=== PATIENT | female | born 1980 | race Caucasian/White ===

== ENCOUNTER → 2017-09-13 | Outpatient (CLI) | payer BC ==
[~2017-09-13] MED LIST: ACET300T3 PO; MTR600X PO; PRENTAB26 PO
== END | disposition home or self-care (01) ==
LOC: C.LABBC 09:54
PROVIDERS: ATTEND Physician Assistant
DX: Z01.419 Encounter for gynecological examination (general) (routine) without abnormal findings (principal)

== ENCOUNTER → 2017-09-13 | Outpatient (CLI) | payer BC ==
[~2017-09-13] MED LIST changes: +ACET-749 PO; -ACET300T3 PO
== END | disposition home or self-care (01) ==
LOC: C.PAPS 13:29
PROVIDERS: ATTEND Physician Assistant
DX: Z01.419 Encounter for gynecological examination (general) (routine) without abnormal findings (principal)

== ENCOUNTER 2019-01-16 08:11 | Inpatient (IN) ==
[2019-01-16] MEDS ORDERED: OXYTOCIN 30 UNITS/500 ML BAG IV PRN ×3 (08:22→16:52)
[2019-01-16] MEDS ORDERED: LACTATED RINGER'S 1,000 ML IV PRN (08:22)
[2019-01-16 09:11] LABS: Hematocrit (blood only) 34.1 % (37-47); Hemoglobin 11.5 g/dL (12.0-16.0); Mean Corpuscular Volume 81.6 fL (80-100); Mean Platelet Volume 10.5 fL (7.4-10.4); Platelet Count 172 K/uL (130-400); RDW Coefficient of Variation 13.1 % (11.5-14.5); Red Blood Count 4.18 M/uL (4.2-5.4); White Blood Count 9.06 K/uL (4.8-10.8)
[2019-01-16 09:12] LABS: Mean Corpuscular Hgb Conc 33.7 g/dL (32-36)
[2019-01-16 09:28] LABS: INR 0.9 (0.9-1.1); Partial Thromboplastin Ratio 0.9; Partial Thromboplastin Time 23.2 Seconds (21.0-31.0); Prothrombin Time 9.3 Seconds (9.0-12.0)
[2019-01-16 09:33] LABS: Albumin Level 2.7 gm/dl (3.4-5.0); Calcium 8.8 mg/dl (8.5-10.1); Creatinine Clr Calc Pharmacy 130.5 ml/min; Est GFR (African American) 133.5; Est GFR (Non-African American) 115.2; Potassium 3.3 mmol/L (3.5-5.1)
[2019-01-16 09:36] LABS: Albumin Globulin Ratio 0.7 (0.9-2); Bilirubin,Total 0.4 mg/dl (0.2-1); Globulin 3.9 gm/dl (2.5-4.0); Total Protein 6.6 gm/dl (6.4-8.2)
[2019-01-16 09:48] LABS: Estimated Average Glucose 103 mg/dl; Hemoglobin A1C 5.2 % (4.5-5.6)
--- NOTE | 2019-01-16 13:09 | History & Physical Report ---
Date of Service January 16, 2019 Assessment & Plan (1) demise: 38-year-old -0-2-3 at 38 weeks 0 days presents for induction of labor for intrauterine demise. She was seen last night on labor and delivery by Dr. Schaefer with complaint of decreased movement, having told Dr. Schaefer that she had not felt the baby move since the previous night. No movement throughout the day yesterday. No vaginal bleeding or leaking of fluid. She had reported some irregular contractions and low back pain, but no regular contractions. Her is complicated by advanced maternal age, and history of miscarriage in 2018. She had panorama performed, this was low risk. She was un dergoing nonstress test in the office, due to advanced maternal age, and these were reactive. She has history of 3 vaginal deliveries, most recent baby delivered in 2014. Last night, patient underwent a formal ultrasound and radiology with Dr. Schaefer at bedside that confirmed demise. Amniotic fluid index measured 5.23 cm. No heart rate seen. She was offered immediate induction versus discharge to home to consider her options by Dr. Schaefer, and she wanted to go home overnight to spend the night with her children and return today for induction of labor. History of Present Illness Primary Care Provider: NO PCP 38-year-old -0-2-3 at 38 weeks 0 days presents for induction of labor for intrauterine demise. She was seen last night on labor and delivery by Dr. Schaefer with complaint of decreased movement, having told Dr. Schaefer that she had not felt the baby move since the previous night. No movement throughout the day yesterday. No vaginal bleeding or leaking of fluid. She had reported some irregular contractions and low back pain, but no regular contractions. Her is complicated by advanced maternal age, and history of miscarriage in 2018. She had panorama performed, this was low risk. She was undergoing nonstress test in the office, due to advanced maternal age, and these were reactive. She has history of 3 vaginal deliveries, most recent baby delivered in 2014. Last night, patient underwent a formal ultrasound and radiology with Dr. Schaefer at bedside that confirmed demise. Amniotic fluid index measured 5.23 cm. No heart rate seen. She was offered immediate induction versus discharge to home to consider her options by Dr. Schaefer, and she wanted to go home overnight to spend the night with her children and return today for induction of labor. Allergies Allergy/AdvReac Type Severity Reaction Status Date / Time No Known Allergies Allergy Verified 01/10/19 14:39 Home Medications Home Medications Medication Instructions Recorded Confirmed Type vit-iron fum-folic ac 1 tab PO DAILY 01/16/19 01/16/19 History [ Vitamin] ranitidine HCl [Zantac] 75 mg PO DAILY 01/16/19 01/16/19 History Patient History Medical History Hx LEEP (loop electrosurgical excision procedure), cervix, 2011 [place] teeth extracted history TAB 2006 Breech presentation Dysplasia of cervix severe Group B streptococcal infection Hematuria Migraine SAB (spontaneous ) 2017,2011 Spontaneous vaginal delivery 2010,2013,2014 Varicella Surgical History H/O dilation and curettage H/O oral surgery History of colposcopy History of loop electrosurgical excision procedure (LEEP) Family History Grandmother (Maternal) Breast cancer Father Abdominal aortic aneurysm Social History Preferred Language: Slovenian Communication Ability: Effective Refractory Specialist Required: No Beliefs That Will Affect Care: None marital status: Current Living Situation: Spouse Current Living Situation Comment: Lives with 3 children Other Information That Helps Us Care for You: No Feels Safe at Home: Yes Safety Concerns: Feels Safe At This Time Smoking Status: Never smoker Hx Alcohol Use: No Hx Substance Use: No Physical Activity Frequency: 3-4 Times per Week Review of Systems All systems reviewed & are unremarkable except as noted in HPI & below Physical Exam Physical Exam: Gen: AAOx3 NAD CV: RRR L: CTAB Abd: soft, gravid, NTTP Ext: no edema SVE: 3/80/-2. AROM performed, clear fluid. Results & Data Vital Signs (Past 12 Hours) Vital Signs Temp Pulse Resp BP 01/16/19 12:50 37.0 C 84 16 110/58 L 01/16/19 12:14 83 107/58 L 01/16/19 11:01 36.9 C 100 H 16 107/61 01/16/19 08:18 37.4 C 18 01/16/19 08:17 81 119/70
[2019-01-16] MEDS ORDERED: BUTORPHANOL TARTRATE 1 MG/ML VIAL IV STA (14:17)
[2019-01-16] MEDS ORDERED: BUTORPHANOL TARTRATE 1 MG/ML VIAL ONE (14:19)
[2019-01-16] MEDS ORDERED: MoRPHine SULFATE 10 MG/ML CARP/VIAL IV STA (14:51)
[2019-01-16] MEDS ORDERED: MoRPHine SULFATE 10 MG/ML CARP/VIAL ONE (14:51)
--- NOTE | 2019-01-16 15:39 | Delivery Summary ---
Vaginal Delivery Summary Date of Service January 16, 2019 Vaginal Delivery Summary Vaginal Delivery Summary: Pre-delivery diagnoses: 38yo @ 38 0/7, intrauterine demise, advanced maternal age Post-delivery diagnoses: same, nuchal cord x 1 Procedure: spontaneous vaginal delivery of a nonviable female Surgeon: Luiza Worley DO Complications: none Findings: Non-viable . Apgars: none . Weight pending, please see nursery records Estimated blood loss: 200ml Description of delivery: The patient progressed to complete with IV morphine for anesthesia. She then began to push. She spontaneously vaginally delivered a nonviable female from the cephalic presentation. The head delivered in ALEXA position. Nuchal cord x 1 was noted, not tight, but without enough slack to reduce. Baby was delivered through. The anterior shoulder delivered, followed by the posterior shoulder and compound left arm, followed by the body. The baby was placed on mother's abdomen. The cord was doubly clamped and cut. The placenta was delivered spontaneously intact with a 3-vessel cord. The uterus and vagina were swept of clots and debris. IV pitocin was given. The uterus became firm. The cervix, vagina, and perineum were inspected and no lacerations were noted. Excellent hemostasis was observed. The mother is recovering in stable and good condition in the room. Gross evaluation of baby shows no obvious abnormalities. Some expected skin sloughing noted, as well as purple discoloration of umbilical cord consistent with venous stasis after demise. Appears to be demise >24h. Sponge and instrument counts were correct x 2. Luiza Worley DO [facility] [place]
[2019-01-16] MEDS ORDERED: HYDROCORTISONE ACETATE 25 MG SUPP PR PRN (16:52)
[2019-01-16] MEDS ORDERED: BISACODYL 10 MG SUPP PR PRN (16:52)
[2019-01-16] MEDS ORDERED: OXYCODONE/ACETAMINOPHEN 5mg/325mg TAB PO PRN (16:52)
[2019-01-16] MEDS ORDERED: SUPERCREAM 0.870% 15 GM JAR EXT PRN (16:52)
[2019-01-16] MEDS ORDERED: DIPHTHERIA/TETANUS/PERTUSSIS 0.5 ML SYR/VIAL IM ONE (16:52)
[2019-01-16] MEDS ORDERED: IBUPROFEN 600 MG TAB PO PRN (16:52)
[2019-01-16] MEDS ORDERED: BENZOCAINE 20% AER SPR 82.5 GM CAN EXT PRN (16:52)
[2019-01-16] MEDS ORDERED: ACETAMINOPHEN 325 MG TAB PO PRN (16:52)
[2019-01-16] MEDS ORDERED: DOCUSATE SODIUM 100 MG CAP PO SCH (21:00)
[2019-01-16 21:14] VITALS: O2SAT 98
[2019-01-16 23:48] VITALS: BP 107/65
[2019-01-17 03:19] VITALS: PULSE 80; TEMP 98.1
--- NOTE | 2019-01-17 03:20 | Obstetrical Progress Note ---
Date of Service January 17, 2019 Assessment & Plan (1) demise: PPD#1 s/p of IUFD at 38w Patient would like to be discharged, I think this is reasonable. She is ambulating, eating/drinking, moderate lochia. Vitals stable and fundus firm. Discussed discharge instructions. Followup in office within the next 2-6 weeks. Reviewed symptoms of normal grief vs depression - she is to call office if she develops depression symptoms. Subjective Ambulation: ambulating normally Voiding: no voiding problems Diet Tolerance:: regular diet Lochia:: Moderate PPD#1 doing ok. Appropriate grief. Moderate lochia. Really would like to go home. Review of Systems All systems reviewed & are unremarkable except as noted in HPI & below Physical Exam Constitutional WD/WN, vitals as above no acute distress Respiratory normal respiratory effort Cardiovascular Rate/Rhythm: regular rate and regular rhythm Gastrointestinal (Abdomen) Inspection/Auscultation: abdomen normal to inspection; abdomen not distended Percussion/Palpation: abdomen soft Genitourinary OB Exam Abdomen: + fundal height Fundus: + firm; not tender Results & Data Vital Signs (Past 12 Hours) Vital Signs Temp Pulse Pulse Resp BP BP Pulse Ox 01/16/19 23:30 36.9 C 75 20 107/65 01/16/19 19:00 37.0 C 62 20 98/66 L 98 01/16/19 18:31 37.1 C 83 18 109/68 01/16/19 18:16 82 106/60 01/16/19 18:01 85 103/63 01/16/19 17:55 74 18 101/61 01/16/19 17:31 75 115/73 01/16/19 17:16 72 107/60 01/16/19 17:15 16 01/16/19 17:01 69 107/57 L 01/16/19 16:46 75 112/59 L 01/16/19 16:31 75 18 116/60 01/16/19 16:16 76 116/63 01/16/19 16:15 37.4 C 18 01/16/19 16:01 76 115/65 01/16/19 16:00 76 18 115/65 01/16/19 15:45 18 01/16/19 15:30 18 01/16/19 15:15 18
[2019-01-17] MEDS ORDERED: PRENATAL VITAMIN 1 TAB PO SCH (08:00)
[2019-01-17] MEDS ORDERED: NON-FORMULARY MEDICATION (Prenatal Vit-Iron Fum-Folic Ac [Prenatal Vitamin] 1 TAB) PO SCH (09:00)
[2019-01-17] MEDS ORDERED: BISACODYL 5 MG TABEC PO SCH (20:00)
[2019-01-24 02:20] LABS: CMV IgG Antibody <0.60 U/ML; CMV IgM Antibody <30.00 Au/mL; Herpes Simplex Ab IgG-2 3.07 INDEX (< 0.90); Toxoplasma gondii IgG Ab, EIA <0.91; Toxoplasma gondii IgM Ab, EIA NEGATIVE
== END 2019-01-17 04:05 | disposition home or self-care (01) | DRG 807 ==
LOC: 4S1 08:11 → 4S2 18:48